=== PATIENT | female | born 1965 | race Caucasian/White ===

== ENCOUNTER 2020-07-16 19:53 | Outpatient (CLI) | payer OTHER | END 2020-07-16 19:54 | disposition critical access hospital (66) | LOC: EMS 19:53 | PROVIDERS: ATTEND Surgery | DX: R20.0 Anesthesia of skin (principal) | CPT/HCPCS: A0425; A0429 ==

== ENCOUNTER 2020-07-16 20:29 | Emergency (ER) | payer OTHER ==
[2020-07-16] MEDS ORDERED: IBUPROFEN 800 MG TABLET PO STA (20:41)
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
--- NOTE | 2020-07-16 21:59 | CT Report ---
PROCEDURE: LOWER EXTREMITY WO - RT INDICATIONS: R lateral tibial plateau fracture TECHNIQUE: Noncontrast 3 mm axial sections acquired of the right knee, with coronal and sagittal reformats. COMPARISON: Right knee radiographs performed earlier the same day. FINDINGS: Image quality: Excellent. Bones: There is a vertically oriented fracture of the lateral tibial plateau with mild depression of the articular surface measuring up to 3 mm. Small comminuted fracture fragments are seen within the fracture. The distal fracture line extends to the lateral portion of the proximal tibial metaphysis a nd into the proximal tibiofibular joint. No additional comminuted, minimally displaced fracture of th e fibular head is noted. There is mild cortical irregularity at the posterior aspect of the medial ti bial plateau extending to an osteophyte that may represent a small minimally displaced fracture. The patella is intact. Mild tricompartmental degenerative changes are seen. Soft tissues: Moderate lipohemarthrosis. The articular cartilages, ligaments, tendons, and menisci a re not well evaluated with CT. There is mild fatty infiltration of the musculature surrounding the kn ee. IMPRESSION: 1. Comminuted, mildly depressed fracture of the lateral tibial plateau with step-off at the articula r surface measuring up to 3 mm in this exam. The fracture extends into the proximal tibiofibular join t. No involvement of the median eminence is seen. 2. Comminuted minimally displaced fracture of the fibular head. 3. Small minimally displaced fracture at the posterior aspect of the medial tibial plateau extending through a small osteophyte. 4. Moderate lipohemarthrosis. Reviewed by: Agustín Nix MD on 07/16/2020 9:58 PM PDT Approved by: Agustín Nix MD on 07/16/2020 9:58 PM PDT Station ID: [id number]
[2020-07-17 00:42] VITALS: BP 129/79
== END 2020-07-17 00:41 | disposition home or self-care (01) ==
LOC: ED 20:29
DX: S82.141A Displaced bicondylar fracture of right tibia, initial encounter for closed fracture (principal); S82.831A Other fracture of upper and lower end of right fibula, initial encounter for closed fracture; S83.91XA Sprain of unspecified site of right knee, initial encounter; W23.0XXA Caught, crushed, jammed, or pinched between moving objects, initial encounter; Y92.814 Boat as the place of occurrence of the external cause; I10 Essential (primary) hypertension; E11.9 Type 2 diabetes mellitus without complications; Z79.4 Long term (current) use of insulin; Z79.82 Long term (current) use of aspirin
CPT/HCPCS: 73564; 73700; 99283; 99284; A9270